=== PATIENT | female | born 1990 | race Caucasian/White ===

== ENCOUNTER → 2023-09-27 08:27 | Outpatient (CLI) | payer OTHER, SELFPAY ==
[2023-09-27 09:12] LABS: Add Manual Diff / Slide Review NO; Basophils Absolute Auto 0 /uL (0-100); Basophils Percent Auto 0.4 % (0-2); Eosinophils Absolute Auto 200 /uL (0-450); Eosinophils Percent Auto 1.5 % (2-4); Hematocrit 38.1 % (36-46); Hemoglobin 12.9 g/dL (12.0-16.0); Lymphocytes Absolute Auto 2900 /uL (1100-4500); Lymphocytes Percent Auto 25.5 % (25-40); Mean Corpuscular Hemoglobin 31.1 PG (26-34); Mean Corpuscular Volume 91.7 fL (80-100); Monocytes Absolute Auto 700 /uL (0-900); Monocytes Percent Auto 6.4 % (3-14); Neutrophils Absolute Auto 7500 /uL (1500-7000); Neutrophils Percent Auto 66.2 % (50-75); Platelet Count 219 X10^3/uL (150-400); Red Blood Cell Count 4.15 X10^6/uL (4.0-5.2); Red Cell Distribution Width 12.3 % (11.6-14.8); White Blood Cell Count 11.3 X10^3/uL (4.5-11.0)
[2023-09-27 16:31] LABS: Hepatitis B Surface Antigen NEGATIVE s/c (NEGATIVE); Rubella Antibody IgG 57.4 IU/mL (>15)
[2023-09-27 16:45] LABS: HIV 1 & 2 Ab/Ag 4th Gen Combo NEGATIVE (NEGATIVE); Hep C Virus Ab w/Reflex Quant NEGATIVE s/c (NEGATIVE)
[2023-09-28 09:15] LABS: RPR Screen Non Reactive (Non Reactive); Varicella IgG Antibody 2353 index (Immune >165)
== END ==
LOC: LAB 08:29
PROVIDERS: Referring Provider Obstetrics & Gynecology; Visit Provider Obstetrics & Gynecology
DX: Z34.80 Encounter for supervision of other normal pregnancy, unspecified trimester (principal)
CPT/HCPCS: 36415; 80055; 86787; 86803; 86850; 86900; 86901; 87086; 87389

== ENCOUNTER → 2023-09-27 08:28 | Outpatient (CLI) | payer OTHER, SELFPAY | PROVIDERS: PCP Family Medicine; Visit Provider Obstetrics & Gynecology | DX: Z34.80 Encounter for supervision of other normal pregnancy, unspecified trimester (principal) | CPT/HCPCS: 87086 ==

== ENCOUNTER → 2023-10-26 11:32 | Outpatient (CLI) | payer OTHER, SELFPAY ==
[2023-10-26 12:39] LABS: Natera Collection Specimen Collected
== END ==
PROVIDERS: Referring Provider Obstetrics & Gynecology; Visit Provider Obstetrics & Gynecology
DX: Z34.02 Encounter for supervision of normal first pregnancy, second trimester (principal); Z3A.16 16 weeks gestation of pregnancy
CPT/HCPCS: 36415

== ENCOUNTER → 2023-11-22 06:58 | Outpatient (CLI) | payer OTHER, SELFPAY ==
--- NOTE | 2023-11-22 06:59 | DI.US.S_ITS ---
PROCEDURE: US OB >= 14 WEEKS FETUS INDICATIONS: concern for previa OUTSIDE/PRIOR DATING DATA: Last menstrual period (LMP): Unknown. LMP-based estimated date of delivery (MAYRA): Unknown. First dating scan (date and location): Unknown. Estimated date of delivery (MAYRA) from first dating scan: 04/08/2024. TECHNIQUE: Real-time scanning was performed of the fetus, with image documentation and biometric measurements. COMPARISON: None. FINDINGS: General: A single living intrauterine gestation is present. Presentation: Breech. Placenta: Placental position is posterior , without previa. Amniotic fluid index: 13.5 cm, normal range is 5-24 cm. Single deepest vertical pocket is 3.9 cm. heart rate: 140 beats per minute. Maternal cervical canal: 3.2 cm long. Normal lower limit is 2.5 cm. biometrics: Biparietal diameter: 4.9 cm 20 weeks 5 days Head circumference: 18.2 cm 20 weeks 4 days Abdominal circumference: 15.0 cm 20 weeks 2 days Femur length: 3.1 cm 19 weeks 4 days Clinically estimated gestational age: Unknown Composite gestational age from present scan: 20 weeks 2 days Estimated weight and percentile: 327g 31st percentile Anatomic survey: Neuro: Ventricles are non-dilated at less than 10 mm. Cisterna magna is normal at 3-11 mm. Cerebellum is normal in size and morphology. Nuchal skin fold: Normal at less than 6 mm between 14-21 weeks gestational age. Face: Nose and lips, facial profile are normal. Spine: No evidence for spina bifida. Heart: 4-chambered heart is present, with normal ventricular outflow tracts. Left ventricular echogenic focus is present. Diaphragm: Diaphragm is intact. Stomach: Left-sided stomach is present. Kidneys: No hydronephrosis. Normal is less than 5 mm in 2nd trimester, less than 7 mm in 3rd trimester. Cord: 3-vessel cord has orthotopic insertion. Bladder: Normal in size. Extremities: All 4 extremities identified. IMPRESSION: Single live intrauterine with gestational age today 20 weeks 2 days. Echogenic focus is present the left ventricle. This is overall nonspecific. However, recommend correlation with genetic and clinical factors and interval imaging follow-up. No evidence of previa. We strive to produce accurate, complete, and clear reports of imaging services. To assist us in improving patient care, this report was composed using standard report templates and voice recognition software. Therefore, it may contain abnormal punctuation, insertions and/or omissions. Occasional wrong-word or sound-alike substitutions may occur. Though we review the report and make efforts to correct it, we do recommend that the report be read carefully in proper context to recognize any text inaccuracies. Dictated by: Marielle Wynn M.D. on 11/22/2023 at 8:11 Approved by: Marielle Wynn M.D. on 11/22/2023 at 8:13
[2023-11-25 23:10] LABS: AFP Value 47.8 ng/mL (.); Gest Age on Col Date 20.3 weeks (.); Gestational Age EDD (.); Insulin Dep Diabetes No (.); OSBR Risk 1IN 10000 (.); Results Report (.); Test Results *Screen Negative* (.)
== END ==
PROVIDERS: Student in an Organized Health Care Education/Training Program; Referring Provider Obstetrics & Gynecology; Visit Provider Obstetrics & Gynecology
DX: Z34.02 Encounter for supervision of normal first pregnancy, second trimester; Z3A.20 20 weeks gestation of pregnancy
CPT/HCPCS: 36415; 76811; 82105

== ENCOUNTER → 2024-01-03 10:32 | Outpatient (CLI) | payer OTHER, SELFPAY ==
[2024-01-03 13:16] LABS: Hematocrit 36.5 % (36-46); Hemoglobin 12.2 g/dL (12.0-16.0)
[2024-01-03 14:33] LABS: GTT (PREG) 1 Hour PP 50gm Dose 69 mg/dL (76-139)
== END ==
PROVIDERS: Referring Provider Obstetrics & Gynecology; Visit Provider Obstetrics & Gynecology
DX: Z34.83 Encounter for supervision of other normal pregnancy, third trimester (principal); Z3A.26 26 weeks gestation of pregnancy
CPT/HCPCS: 36415; 82950; 85014; 85018

== ENCOUNTER → 2024-03-14 08:53 | Outpatient (CLI) | payer OTHER, SELFPAY ==
[2024-03-15 13:29] LABS: Strep Grp B PCR NEG for Grp B Strep
== END ==
PROVIDERS: Visit Provider Obstetrics & Gynecology
DX: Z34.03 Encounter for supervision of normal first pregnancy, third trimester (principal); Z3A.36 36 weeks gestation of pregnancy
CPT/HCPCS: 87653

== ENCOUNTER 2024-04-11 11:19 | Outpatient (CLI) | payer OTHER, SELFPAY | END 2024-04-11 11:52 | disposition home or self-care (01) | LOC: LABOR 11:33 → OB 04-12 09:58 | PROVIDERS: Referring Provider Obstetrics & Gynecology; Visit Provider Obstetrics & Gynecology | DX: O48.0 Post-term pregnancy (principal); Z3A.40 40 weeks gestation of pregnancy | CPT/HCPCS: 59025; G0378; G0379 ==

== ENCOUNTER 2024-04-13 09:01 | Observation (INO) | payer OTHER, SELFPAY ==
--- NOTE | 2024-04-13 09:50 | P.TNLD_ITS ---
Visit Information Visit Information Date of evaluation: 04/13/24 Primary OB Provider: Anahi Gonzalez On-call OB Provider: Laquita Juarez Reason for Evaluation: Yes rule out labor Comments/Additional reasons for admission: Patient with back discomfort, early labor. No LOF, vaginal bleeding, or other concerns. Vital Signs Vital Signs: BP: 134/77, Pulse 54, T 36.4 [facility] Medical History (Updated 11/22/23 @ 09:20 by Mitzy Loza DO) Chicken pox Anxiety Fibula fracture (~2019) Depression Surgical History (Updated 09/21/23 @ 09:08 by Jill Ly, MEENA) [employer] teeth extracted H/O dilation and curettage (~2014) Family History (Updated 11/11/23 @ 20:28 by Haven Chinchilla) Grandmother Breast cancer Grandmother Heart disease Uncle Prostate cancer Grandmother Cancer Social History marital status: number of children: 0 household members: spouse and friend(s) lives independently: Yes caregiver/support person: Yes housing: house pets and animals: Yes (dogs, cats, ponies, goats, several types of fowl.) 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 status: employed ([employer]) current occupational exposures/hazards: No special lakisha needs: No travel history: recent ([place]) seatbelt use: always water heater temp set < 120 deg: Yes working smoke detector in home: Yes fire extinguisher in home: Yes carbon monox detector in home: Yes firearms in home: Yes firearms unloaded and locked: Yes do you feel safe at home: Yes Smoking Status: Current some day smoker (1-2x/week when drinking, none since +UPT) Tobacco: How many years used: 15 (off and on, mostly only when drinking) second hand exposure: No alcohol intake: former (tends to drink 4-5/day on weekends only when not ) substance use type: marijuana (instructed not to use while /) during the past year weight has: remained stable well-balanced diet: daily or most days daily servings fruits/ve or more times/day caffeine: Yes (2 shots espresso in AM) 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 Labor precautions given. NST reactive. OB Disposition: home
[2024-04-13] MEDS: hydrOXYzine 50 MG/ML INJ IM (10:21)
[2024-04-13] MEDS: MORPHINE 4 MG/ML INJ 5 MG IM (10:22)
== END 2024-04-13 10:23 | disposition home or self-care (01) ==
PROVIDERS: Admitting Provider Obstetrics & Gynecology; Referring Provider Obstetrics & Gynecology; Visit Provider Obstetrics & Gynecology
DX: O47.1 False labor at or after 37 completed weeks of gestation (principal); O26.893 Other specified pregnancy related conditions, third trimester; O99.323 Drug use complicating pregnancy, third trimester; M54.9 Dorsalgia, unspecified; F12.90 Cannabis use, unspecified, uncomplicated; Z3A.40 40 weeks gestation of pregnancy
CPT/HCPCS: 59025; 96372; G0378; G0379; J2270; J3410

== ENCOUNTER 2024-04-13 23:03 | Inpatient (IN) | payer OTHER, SELFPAY ==
[2024-04-13] MEDS: MORPHINE 10 MG/ML INJ IM (23:30)
[2024-04-14 01:35] LABS: Add Manual Diff / Slide Review NO; Basophils Absolute Auto 0 /uL (0-100); Basophils Percent Auto 0.1 % (0-2); Eosinophils Absolute Auto 0 /uL (0-450); Eosinophils Percent Auto 0.2 % (2-4); Hematocrit 39.6 % (36-46); Hemoglobin 13.4 g/dL (12.0-16.0); Lymphocytes Absolute Auto 2300 /uL (1100-4500); Lymphocytes Percent Auto 14.7 % (25-40); Mean Corpuscular HGB Conc 33.9 % (30-36); Mean Corpuscular Hemoglobin 30.7 PG (26-34); Mean Corpuscular Volume 90.6 fL (80-100); Monocytes Absolute Auto 700 /uL (0-900); Monocytes Percent Auto 4.6 % (3-14); Neutrophils Absolute Auto 12300 /uL (1500-7000); Neutrophils Percent Auto 80.4 % (50-75); Platelet Count 177 X10^3/uL (150-400); Red Blood Cell Count 4.37 X10^6/uL (4.0-5.2); Red Cell Distribution Width 12.8 % (11.6-14.8); White Blood Cell Count 15.3 X10^3/uL (4.5-11.0)
[2024-04-14] MEDS: LACTATED RINGERS 1,000 ML 1000 ML IV (01:54)
--- NOTE | 2024-04-14 01:59 | PM.AN.REGBLK ---
Regional Block Pre-procedure Procedure: Continuous Lumbar Epidural for L&D Attending OB provider: Laquita Juarez PMH/ROS narrative: primip term labor, no complications. ASA Class: II Labs: Hct 39.6 % (36-46) 04/14/24 00:02 Plt Count 177 X10^3/uL (150-400) 04/14/24 00:02 Medications: Current Medications Generic Name Dose Route Start Last Admin Trade Name Freq PRN Reason Stop Dose Admin Calcium Carbonate 1,000 mg 04/14/24 00:51 Calcium Carbonate 500 Mg Tab PO Q2HR PRN Dyspepsia Carboprost Tromethamine 250 mcg 04/14/24 00:51 Carboprost 250 Mcg/Ml Ampul IM Q90M PRN Bleeding Fentanyl 50 mcg 04/14/24 00:51 Fentanyl 100 Mcg/2 Ml Inj IV Q1H PRN Pain, Moderate (4-6) Lactated Ringer's 1,000 mls @ 100 mls/hr 04/14/24 01:00 Lactated Ringers IV 04/14/24 10:59 CONT CORNELIUS Oxytocin/Lactated Ringer's 30 unit in 500 mls @ 200 mls/hr 04/14/24 00:51 Oxytocin Premix IV CONT PRN Bleeding Protocol Tranexamic Acid 1,000 mg/ 100 mls @ 600 mls/hr 04/14/24 00:51 Sodium Chloride IV NOW PRN Bleeding Oxytocin/Lactated Ringer's 30 unit in 500 mls @ 2 mls/hr 04/14/24 01:00 Oxytocin Premix IV TITRATE CORNELIUS Protocol 2 MILLIUNIT/MIN Lidocaine HCl 20 ml 04/14/24 00:51 Lidocaine 1% 20 Ml INJ INTRA-OP PRN Post Delivery Methylergonovine Maleate 0.2 mg 04/14/24 00:51 Methylergonovine 0.2 Mg Tablet PO Q6HR PRN Heavy Bleeding Methylergonovine Maleate 0.2 mg 04/14/24 00:51 Methylergonovine 0.2 Mg/Ml Vial IM NOW PRN Bleeding Mineral Oil 30 ml 04/14/24 00:51 Mineral Oil 30 Ml Udc TOP PRN PRN Version Misoprostol 800 mcg 04/14/24 00:51 Misoprostol 200 Mcg Tablet MS NOW PRN Bleeding Misoprostol 400 mcg 04/14/24 00:51 Misoprostol 200 Mcg Tablet SL NOW PRN Bleeding Morphine Sulfate 10 mg 04/13/24 23:12 04/13/24 23:30 Morphine 10 Mg/Ml Inj IM 10 mg Q4HR PRN Administration Pain, Severe (7-10) Naloxone HCl 0.2 mg 04/14/24 00:51 Naloxone 0.4 Mg/Ml Vial IV Q2MIN PRN Opiate Reversal Ondansetron HCl 4 mg 04/14/24 00:51 Ondansetron 4 Mg/2 Ml Inj IV Q4HR PRN Nausea And Vomiting Oxytocin 10 unit 04/14/24 00:51 Oxytocin 10 Unit/Ml Vial IM NOW PRN Bleeding Allergies: Allergies Allergy/AdvReac Type Severity Reaction Status Date / Time No Known Drug Allergies Allergy Unverified 04/11/24 10:57 Procedure Insertion date: 04/14/24 Insertion time: 02:13 Prep/Local: betadine x3 and 1% lidocaine Interspace: L34 Patient position: sitting Needle: 18 gauge Hustead (CSE: 27g Pencan through Hustead, clear CSF, 1mL 0.25% bupiv MPF) Loss of resistance with: saline KYLIE at (cm): 5 Catheter placed at SKIN (cm): 11 Catheter in SPACE (cm): 6 Insertion: No CSF, No Blood, No Paresthesia with insertion, No Paresthesia with injection and No Test dose reaction Initial Medications TEST DOSE time: 02:15 TEST DOSE: 1.5% lidocaine with epinephrine 1:200k (mL): 3 BOLUS DOSE time: 02:27 BOLUS DOSE (mL): 4 BOLUS DOSE med: other (infusate) Infusion INFUSION: 0.125% bupivacaine and with fentanyl 2 mcg/mL Initial rate (mL/hr): 8 Post-procedure Anesthesia date START: 04/14/24 Anesthesia time START: 02:00 Anesthesia date END: 04/14/24 Anesthesia time END: 04:45 Post-procedure Anesthesia Assessment: Yes CV function: HR/BP stable, Yes Resp function: RR/sat/airway adequate, Yes Post-op hydration adequate, Yes Pain control adequate, Yes Nausea & vomiting absent, Yes Temperature > 36 C, Yes Mental status appropriate and No Anesthesia complications
--- NOTE | 2024-04-14 02:02 | P.HPOB_ITS ---
OB HPI Date/Time Date of admission: 04/13/24 History of Present Condition Chief complaint: labor MAYRA Calculator 2 Estimated Delivery Date Method Current WG Current Estimate 04/08/24 Ultrasound #1 40w 6d Other Estimates 03/27/24 LMP (Uncertain) 42w 4d : 2 Para: 0 Narrative: 33 yo at 40w6d presenting with painful contractions and cervical change from earlier in the day. No LOF or vaginal bleeding. Good movement. uncomplicated. care: good care Dating criteria OB: based on 1st trimester US only Ultrasounds: normal 1st trimester US, normal mid trimester US and abnormal US findings (cardiac echogenic focus) Obstetrical complications: none Medical complications OB: none Preadmission Labs Last OB Lab Results: 2 Blood Type B Positive 09/27/23 08:32 Antibody Screen Negative 09/27/23 08:32 Hct 39.6 % (36-46) 04/14/24 00:02 Hgb 13.4 g/dL (12.0-16.0) 04/14/24 00:02 Hep Bs Antigen Negative s/c (NEGATIVE) 09/27/23 08:32 Hepatitis C Antibody Negative s/c (NEGATIVE) 09/27/23 08:32 Rubella Antibody 57.4 IU/mL (>15) 09/27/23 08:32 VZV IgG Antibody 2353 index (Immune >165) 09/27/23 08:32 Glucose 1 Hr 50 gm 69 mg/dL (76-139) L 01/03/24 11:50 Group B Strep (PCR) Neg for grp b strep 03/14/24 09:00 Glucose Tolerance Testin hr Genetic Screens: Cell-free DNA: Normal (XX) Prior (ies) Past Pregnancies Del. Date GA/Weeks Labor Lgth Wt Sex Route Outcome Anesthesia Place Delv Breastfeed Preg Comp Name 12/18/14 5 elective Delivery Date: 12/18/14 Last Updated by: Jill Ly RN D&C, no complications Evaluation Evaluation Baseline heart rate: 140 Variability: Average (6-10) monitor accelerations: Present Monitor Decelerations: Absent Contraction Frequency (minutes): 3 Uterine Contraction Intensity: Moderate Category of Tracing: Reactive Status: Category l Dilation (cm): 4 Effacement (%): 90 Position of cervix: mid [facility] Medical History (Updated 11/22/23 @ 09:20 by Mitzy Loza DO) Chicken pox Anxiety Fibula fracture (~2019) Depression Surgical History (Updated 09/21/23 @ 09:08 by Jill Ly RN) [place] teeth extracted H/O dilation and curettage (~2014) Family History (Updated 11/11/23 @ 20:28 by Haven Chinchilla) Grandmother Breast cancer Grandmother Heart disease Uncle Prostate cancer Grandmother Cancer Social History marital status: number of children: 0 household members: spouse and friend(s) lives independently: Yes caregiver/support person: Yes housing: house pets and animals: Yes (dogs, cats, ponies, goats, several types of fowl.) 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) current occupational exposures/hazards: No special lakisha needs: No travel history: recent ([place]) seatbelt use: always water heater temp set < 120 deg: Yes working smoke detector in home: Yes fire extinguisher in home: Yes carbon monox detector in home: Yes firearms in home: Yes firearms unloaded and locked: Yes do you feel safe at home: Yes Smoking Status: Current some day smoker (1-2x/week when drinking, none since +UPT) Tobacco: How many years used: 15 (off and on, mostly only when drinking) second hand exposure: No alcohol intake: former (tends to drink 4-5/day on weekends only when not ) substance use type: marijuana (instructed not to use while /) during the past year weight has: remained stable well-balanced diet: daily or most days daily servings fruits/ve or more times/day caffeine: Yes (2 shots espresso in AM) 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) Meds Home Medications and Allergies Home Medications Medication Instructions Recorded Confirmed Type vitamin-ferrous sulfate tab PO 09/21/23 04/11/24 History 27 mg iron-folic acid 0.8 mg tablet citalopram 20 mg tablet 20 mg PO DAILY #90 tabs 01/31/24 04/11/24 Rx trazodone 50 mg tablet 50 mg PO BEDTIME #90 tabs 01/31/24 04/11/24 Rx Allergies Allergy/AdvReac Type Severity Reaction Status Date / Time No Known Drug Allergies Allergy Unverified 04/11/24 10:57 Objective Labs 04/14/24 00:02 Labs: Laboratory Results - last 24 hr 04/14/24 00:02 WBC 15.3 H RBC 4.37 Hgb 13.4 Hct 39.6 MCV 90.6 MCH 30.7 MCHC 33.9 RDW 12.8 Plt Count 177 Neut % (Auto) 80.4 H Lymph % (Auto) 14.7 L [place] % (Auto) 4.6 Eos % (Auto) 0.2 L Baso % (Auto) 0.1 Neut # (Auto) 79996 H Lymph # (Auto) 2300 [place] # (Auto) 700 Eos # (Auto) 0 Baso # (Auto) 0 Assessment and Plan Assessment and Plan Assessment and Plan narrative: 33 yo here in active labor. uncomplicated. GBS negative. -admit for spontaneous labor -anticipate vaginal delivery Time-Based Coding :: 30 spent with patient and on the chart (including review of chart, obtaining history, exam, reviewing outside data, placing orders, documenting exam and treatment plan, and counseling patient) on 04/14.
--- NOTE | 2024-04-14 05:11 | PM.OBPRVD ---
Labor & Delivery Delivery date: 04/14/24 Intrapartal Events: Deceleration Cervical ripening method: none Induction method: none Delivery augmentation: rupture of membranes Delivery monitor: external FHT Route of delivery: L&D Laceration Description: Periurethral - 1st Degree and Perineal - 2nd Degree Delivery repair: vicryl Estimated blood loss (mL): 250 Anesthesia Type: Epidural Narrative: Patient was found to be complete and began pushing efforts. monitoring with decelerations down to high 90s, low 100s following pushing. Maternal oxygen placed and mom put in left side tilt. Patient pushed over 3 contractions and delivered a viable female in the OA position. Placenta delivered with gentle cord traction. Fundus found to be firm. Pitocin bolus given. There was a left anterior periurethral tear and a second degree perineal both repaired with suture. Bleeding minimal. Patient recovering well. Plan for aftercare: Routine care
--- NOTE | 2024-04-14 10:10 | P.PNOB_ITS ---
Subjective - OB Subjective Patient comments: no complaints and pain well controlled [place] baby status: doing well [place] feeding status: exclusively breast feeding Narrative: PPD0 s/p LBFI, doing well Date Patient Seen: 04/14/24 Time Patient Seen: 07:30 Exam Vital Signs (past 8 hours): maternal VSS/afebrile per review in OBIX Const General: cooperative, healthy appearing and comfortable Nutritional Appearance: average body habitus Orientation: alert, awake and oriented x3 Limitations: mental status not altered Resp Effort & Inspection: normal respiratory effort and able to speak in complete sentences Cardio Pulses: normal peripheral pulses GI Inspection: normal to inspection Other: fundus firm 2-U Other: deferred, lochia wnl per RN L periurethral, 2nd degree perineal laceration repaired in standard fashion per review of delivery procedure note Skin General: no rashes or lesions noted Neuro General: patient alert, patient awake and patient oriented x3 Extrem General: normal to inspection Psych Mental Status: mental status grossly normal Judgment: judgment good Objective Labs 04/14/24 00:02 Labs: Laboratory Results - last 24 hr 04/14/24 00:02 WBC 15.3 H RBC 4.37 Hgb 13.4 Hct 39.6 MCV 90.6 MCH 30.7 MCHC 33.9 RDW 12.8 Plt Count 177 Neut % (Auto) 80.4 H Lymph % (Auto) 14.7 L [place] % (Auto) 4.6 Eos % (Auto) 0.2 L Baso % (Auto) 0.1 Neut # (Auto) 65564 H Lymph # (Auto) 2300 [place] # (Auto) 700 Eos # (Auto) 0 Baso # (Auto) 0 Blood Type B Positive Antibody Screen Negative Assessment & Plan Plan day: 1 plan OB: routine care Comments: 33yo PPD0 s/p of LBFI, doing well routine care exclusively, consult PRN undecided re: contraception, readdress prior to discharge PNL: Rh+, rubella immune, GBS neg, remainder as per admission documentation anticipate dc to home PPD1-2 pending clinical course and clearance per peds Time-Based Coding :: [TOTAL MINUTES] spent with patient and on the chart (including review of chart, obtaining history, exam, reviewing outside data, placing orders, documenting exam and treatment plan, and counseling patient) on [DATE].
[2024-04-14] MEDS: LANOLIN OINT 7 GM 1 APPLIC TOP (16:29)
[2024-04-14] MEDS: WITCH HAZEL/GLYCERIN PADS 1 EACH TOP (16:30)
[2024-04-14] MEDS: DERMOPLAST SPRAY 20% 60 ML 1 SPRAY TOP (16:31)
[2024-04-14] MEDS: CITALOPRAM 10 MG TABLET 20 MG PO (22:39)
[2024-04-14] MEDS: TRAZODONE 50 MG TABLET PO (22:40)
[2024-04-15] MEDS: PRENATAL VIT,CALC/IRON/FOLIC 1 TABLET 1 TAB PO (09:16)
[2024-04-15] MEDS: FERROUS SULFATE 325 MG TABLET PO (09:17)
[2024-04-15 09:20] VITALS: BP 116/77; PULSE 62; RESP 16; TEMP 37
--- NOTE | 2024-04-15 11:29 | P.DS_ITS ---
Discharge Providers Provider Date of admission: 04/13/24 23:03 Discharge Date: 04/15/24 Consults: 04/14/24 00:52 Consult to Anesthesiology Urgent Comment: Consulting Provider: Alvarado Cooper Reason for consultation: Epidural 04/15/24 05:09 Consult to Email Production Consultant Routine Comment: Discharge provider: Tea Pradhan MD Summary Hospital Course Date Patient Seen: 04/15/24 Time Patient Seen: 11:30 Diagnoses: Term in active labor with spontaneous vaginal delivery Hospital Course: Patient arrived on Labor and delivery in active labor. She had a spontaneous vaginal delivery a second-degree perineal first-degree periurethral tear. Peripartum Data Infant Delivery Method: Natural Vaginal Laceration Description: Periurethral - 1st Degree and Perineal - 2nd Degree Procedures: Spontaneous vaginal delivery with repair 2nd degree perineal tear and first- degree periurethral tear complications: none [place] 1: Gender: Female Disposition of : home Discharge Diagnosis (1) Vaginal delivery: Status: Acute Status at Discharge Cognitive/behavioral status at discharge: oriented Functional status at discharge: independent ambulation Overall status at discharge: patient is progressing back to baseline Time Spent with Patient Time attestation: Total time spent providing and/or coordinating discharge services: Objective Labs 04/14/24 00:02 Exam Vital Signs (past 8 hours): Blood pressure 116/77, pulse 62, temperature 98.6? Narrative Exam Narrative: Abdomen is soft, nontender. Uterus is firm, U-1, nontender. Mild lochia. Extremities without edema and nontender. Discharge Plan Discharge Plan Patient Disposition: Home Discharge orders & Medications Prescriptions: Continued citalopram 20 mg tablet 20 mg PO DAILY Qty: 90 3RF trazodone 50 mg tablet 50 mg PO BEDTIME Qty: 90 0RF vit-ferrous sulfat-FA 27 mg iron- 0.8 mg tablet PO Follow up/Referrals: Anahi Gonzalez MD [Physician] - 05/12/24 11:00 am (4 week follow up appt with Dr. Gonzalez) Diet/Activity/Treatments Diet: Regular Activity: Nothing in vagina for 6 weeks Skin/Wound/Dressing Care Report to your healthcare provider any signs of infection, such as:: chills, fever and increased pain Visit Report/Discharge Packet Stand Alone Forms: Patient Portal/API, Stroke Signs & Symptoms
== END 2024-04-15 13:05 | disposition home or self-care (01) | DRG 806 ==
PROVIDERS: Admitting Provider Student in an Organized Health Care Education/Training Program; Referring Provider Student in an Organized Health Care Education/Training Program; Visit Provider Student in an Organized Health Care Education/Training Program
DX: O76 Abnormality in fetal heart rate and rhythm complicating labor and delivery (principal); O47.1 False labor at or after 37 completed weeks of gestation; Z37.0 Single live birth; O99.323 Drug use complicating pregnancy, third trimester; O70.1 Second degree perineal laceration during delivery; Z3A.40 40 weeks gestation of pregnancy; O26.893 Other specified pregnancy related conditions, third trimester; M54.9 Dorsalgia, unspecified; F12.90 Cannabis use, unspecified, uncomplicated
CPT/HCPCS: 36415; 59025; 59050; 59400; 59409; 85025; 86850; 86900; 86901; 96372; G0378; G0379; J2270; J3410